=== PATIENT | female | born 1960 | race African-American/Black ===

== ENCOUNTER 2019-08-11 12:54 | Emergency (ER) | payer MEDICARE, MEDICAID ==
[~2019-08-11] VITALS: Ht 152.4 cm; Wt 136.0 kg
[2019-08-11] MEDS ORDERED: IBUPROFEN 800MG TABLET PO ONE (16:45)
[2019-08-11 17:12] LABS: BASOPHILS % 0.3 % (0.0-2.0); EOSINOPHILS % 1.4 % (0.0-5.0); HEMATOCRIT. 39.7 % (36.0-48.0); HEMOGLOBIN. 13.3 g/dL (12.0-16.0); LYMPHOCYTES % 38.8 % (20.0-50.0); MEAN CORPUSCULAR HEMOGLOBIN 32.5 pg (28.0-32.0); MEAN CORPUSCULAR VOLUME 96.7 fL (81.0-99.0); MEAN PLATELET VOLUME 7.1 fl (7.4-10.4); MONOCYTES % 5.9 % (2.0-8.0); NEUTROPHILS % 53.6 % (40.0-76.0); PLATELET 287 x1000/uL (130-400); RED BLOOD CELL COUNT 4.11 mill/uL (4.2-5.4); RED CELL DISTRIBUTION WIDTH 14.1 % (11.6-14.6)
[2019-08-11 17:18] LABS: CHLORIDE 105 mEq/L (98-107)
[2019-08-11 17:22] LABS: ETHANOL BLOOD < 10 mg/dL
[2019-08-11 17:27] LABS: CREATINE KINASE 164 IU/L (26-192)
[2019-08-11 17:30] LABS: CREATINE KINASE MB FRACTION 1.5 ng/mL (0.5-3.6)
[2019-08-11 19:33] VITALS: BP 163/96
== END 2019-08-11 19:40 | disposition home or self-care (01) ==
LOC: ER 12:54
DX: M19.012 Primary osteoarthritis, left shoulder (principal)
CPT/HCPCS: 36415; 71045; 73030; 80320; 82550; 82553; 83880; 84443; 84484; 85651; 93005; 99284; G0480

== ENCOUNTER → 2021-07-09 | Outpatient (CLI) | payer MEDICARE, MEDICAID ==
[~2021-07-09] MED LIST: ALBUTEROL (0.083%) 2.5MG/3ML NEB ONE
== END | disposition home or self-care (01) ==
LOC: PF 11:11
PROVIDERS: ATTEND Internal Medicine Pulmonary Disease
DX: G47.33 Obstructive sleep apnea (adult) (pediatric) (principal); J45.909 Unspecified asthma, uncomplicated; Z20.822 Contact with and (suspected) exposure to COVID-19
CPT/HCPCS: 87426; 94060; 94727; 94729

== ENCOUNTER 2024-07-06 05:44 | Inpatient (IN) | payer MEDICARE, OTHER ==
[~2024-07-06] VITALS: Ht 154.9 cm; Wt 131.2 kg
[~2024-07-06 05:44] MED LIST changes: -ALBUTEROL (0.083%) 2.5MG/3ML NEB ONE; +ALLO100T PO; +ASPI-1497 PO; +ERGO1250 PO; +GABA-532 PO; +HYDR25TA PO; +LOSA100T33 PO; +NAPR-681 PO; +NIFE90TA2 PO
[2024-07-06] MEDS ORDERED: BUPIVACAINE HCL/PF 0.25% (2.5MG/ML) 10ML ONE (06:40)
[2024-07-06] MEDS ORDERED: POLYMYXIN B SULFATE 500000 UNITS/VIAL ONE ×2 (06:41→07:31)
[2024-07-06] MEDS ORDERED: VANCOMYCIN HCL 1GM VIAL ONE (06:41)
[2024-07-06] MEDS: LACTATED RINGERS 1,000 ML IV SCH (06:48)
[2024-07-06] MEDS ORDERED: ROPIVACAINE HCL 1% 20 ML VIAL EPI ONE (07:25)
[2024-07-06] MEDS ORDERED: TRANEXAMIC ACID 1000MG PREMIX 200 ML IV ONE (07:31)
[2024-07-06] MEDS ORDERED: LIDOCAINE HCL/EPINEPHRINE 1%-EPI 1:100,000 20ML VIAL ONE (07:32)
[2024-07-06] MEDS ORDERED: SKIN ADHESIVE 0.7 GM EA TOP ONE (09:16)
[2024-07-06] MEDS ORDERED: SUGAMMADEX SODIUM 200MG/2ML VIAL IV ONE (09:42)
[2024-07-06] MEDS ORDERED: KETOROLAC 30MG/ML VIAL IV PRN (10:00)
[2024-07-06] MEDS ORDERED: ACETAMINOPHEN 325MG TABLET PO PRN (10:00)
[2024-07-06] MEDS ORDERED: CEFAZOLIN 1000MG PREMIX 50 ML IV NR (10:00)
[2024-07-06] MEDS ORDERED: ONDANSETRON HCL 4MG/2ML INJ IV PRN ×2 (10:00→11:30)
[2024-07-06] MEDS: HYDROMORPHONE HCL/PF 1MG/ML INJ IV PRN (11:46)
[2024-07-06] MEDS ORDERED: LABETALOL 5MG/ML 4ML INJ IV PRN (12:00)
[2024-07-06] MEDS ORDERED: MEPERIDINE HCL/PF 25MG/ML CPJ IV PRN (12:00)
[2024-07-06] MEDS ORDERED: DIPYRIDAMOLE 25 MG TABLET PO SCH (13:00)
[2024-07-06] MEDS: METOCLOPRAMIDE HCL 10MG/2ML VIAL IV SCH (14:00)
[2024-07-06 16:00] VITALS: BP 112/80; PULSE 62; RESP 18; TEMP 36.28068; O2SAT 95
[2024-07-06 18:34] VITALS: BP 149/91; PULSE 76; RESP 14; TEMP 36.14
[2024-07-06 19:28] LABS: POTASSIUM 4.6 mEq/L (3.5-5.1)
[2024-07-06 19:29] LABS: CALCIUM 10.8 mg/dL (8.7-10.4)
[2024-07-06 19:34] LABS: CREATININE 1.2 mg/dL (0.6-1.0)
[2024-07-06 20:00] VITALS: BP 154/85; PULSE 72; RESP 18; TEMP 37.00296; O2SAT 98
[2024-07-06] MEDS: SENNOSIDES/DOCUSATE SOD 8.6/50MG TABLET PO SCH (21:00)
[2024-07-06] MEDS: HYDROCODONE/ACETAMINOPHEN 5/325MG TABLET PO PRN (21:09)
[2024-07-06] MEDS: CEFAZOLIN 1000MG PREMIX 50 ML IV SCH (22:00)
[2024-07-07] VITALS: BP 126/77; PULSE 63; RESP 20; TEMP 36.22512; O2SAT 99
[2024-07-07 04:00] VITALS: BP 132/78; PULSE 62; RESP 19; TEMP 36.89184; O2SAT 100
[2024-07-07 07:04] LABS: BASOPHILS % 0.3 % (0.0-2.0); HEMATOCRIT. 38.8 % (36.0-48.0); HEMOGLOBIN. 12.5 g/dL (12.0-16.0); LYMPHOCYTES % 13.3 % (20.0-50.0); MEAN CORPUSCULAR HEMOGLOBIN 31.9 pg (28.0-32.0); MEAN CORPUSCULAR HGB CONC 32.2 g/dL (31.0-37.0); MEAN CORPUSCULAR VOLUME 99.2 fL (81.0-99.0); MEAN PLATELET VOLUME 7.9 fl (7.4-10.4); NEUTROPHILS % 78.4 % (40.0-76.0); PLATELET 269 x1000/uL (130-400); RED BLOOD CELL COUNT 3.91 mill/uL (4.2-5.4); RED CELL DISTRIBUTION WIDTH 14.5 % (11.6-14.6); WHITE BLOOD COUNT 11.8 x1000/uL (4.5-11.0)
[2024-07-07] MEDS ORDERED: OXYC-100 MT (07:50)
[2024-07-07] MEDS ORDERED: SULF1TAB48 MT (07:51)
[2024-07-07 08:00] VITALS: BP 124/78; PULSE 75; RESP 18; TEMP 35.61396; O2SAT 99
[2024-07-07] MEDS ORDERED: NIFEDIPINE XL 60MG TAB PO SCH (08:00)
[2024-07-07] MEDS ORDERED: HYDROCHLOROTHIAZIDE 25MG TABLET PO SCH (08:00)
[2024-07-07] MEDS ORDERED: LOSARTAN 100 MG TABLET PO SCH (08:00)
[2024-07-07] MEDS ORDERED: NALOXONE HCL 0.4MG/ML VIAL IV PRN (08:00)
[2024-07-07] MEDS ORDERED: ASPIRIN 81MG EC TABLET PO SCH (08:00)
[2024-07-07] MEDS: LOSARTAN 100 MG TABLET PO SCH (08:45)
[2024-07-07] MEDS: NIFEDIPINE XL 60MG TAB PO SCH (08:46)
[2024-07-07] MEDS: HYDROCHLOROTHIAZIDE 25MG TABLET PO SCH (08:46)
[2024-07-07] MEDS: ASPIRIN 81MG EC TABLET PO SCH (08:46)
[2024-07-07 12:00] VITALS: BP 142/78; PULSE 67; RESP 18; TEMP 36.114; O2SAT 99
[2024-07-07 16:00] VITALS: BP 123/63; PULSE 87; RESP 17; TEMP 36.50292; O2SAT 96
[2024-07-07 20:00] VITALS: BP 146/74; PULSE 80; RESP 19; TEMP 35.89176; O2SAT 95
[2024-07-07] MEDS: HYDROCODONE/ACETAMINOPHEN 10/325MG TABLET PO PRN (21:38)
[2024-07-08] VITALS: BP 114/52; PULSE 81; RESP 19; TEMP 36.44736; O2SAT 96
[2024-07-08 04:00] VITALS: BP 121/67; PULSE 79; RESP 19; TEMP 36.50292; O2SAT 96
[2024-07-08 08:00] VITALS: BP 134/80; PULSE 81; RESP 18; TEMP 37.28076; O2SAT 95
[2024-07-08 12:00] VITALS: BP 125/68; PULSE 85; RESP 19; TEMP 36.61404; O2SAT 98
[2024-07-08 13:03] VITALS: BP 125/68; PULSE 85; TEMP 97.9; O2SAT 99
== END 2024-07-08 13:47 | disposition home or self-care (01) | DRG 483 ==
LOC: OR 05:44 → 6EST 16:19
PROVIDERS: ADMIT Internal Medicine; ATTEND Internal Medicine
PROC: 0RRJ0JZ Replacement of Right Shoulder Joint with Synthetic Substitute, Open Approach (ICD-10-PCS; principal; 2024-07-06)
PROC: 0LS30ZZ Reposition Right Upper Arm Tendon, Open Approach (ICD-10-PCS; 2024-07-06)
DX: M19.011 Primary osteoarthritis, right shoulder (principal); G82.50 Quadriplegia, unspecified; N17.9 Acute kidney failure, unspecified; Z68.43 Body mass index [BMI] 50.0-59.9, adult; M47.12 Other spondylosis with myelopathy, cervical region; E66.01 Morbid (severe) obesity due to excess calories; E83.52 Hypercalcemia; G47.33 Obstructive sleep apnea (adult) (pediatric); I10 Essential (primary) hypertension; M19.012 Primary osteoarthritis, left shoulder; G62.9 Polyneuropathy, unspecified; M48.02 Spinal stenosis, cervical region; K59.00 Constipation, unspecified; F41.9 Anxiety disorder, unspecified; Z98.1 Arthrodesis status; Z88.5 Allergy status to narcotic agent
CPT/HCPCS: 36415; 73030; 80048; 85025; 86850; 86900; 88304; 88311; 97116; 97162; 97166; 97535; J0690; J1170; J2765; J2795; J3370; J3490; C1769; C1776

== ENCOUNTER → 2024-07-26 | Outpatient (CLI) | payer MEDICARE, OTHER ==
[~2024-07-26] MED LIST changes: -ERGO1250 PO; -HYDR25TA PO; -NAPR-681 PO; +OXYC-100 MT; +SULF1TAB48 MT
== END | disposition home or self-care (01) ==
LOC: RAD 10:43
DX: M19.011 Primary osteoarthritis, right shoulder (principal); Z96.611 Presence of right artificial shoulder joint
CPT/HCPCS: 73030

== ENCOUNTER → 2025-05-25 | Outpatient (CLI) | payer MEDICARE, MEDICAID ==
[~2025-05-25] MED LIST changes: +GABA-1180 PO; -GABA-532 PO
== END | disposition home or self-care (01) ==
LOC: RAD 09:48
DX: M19.012 Primary osteoarthritis, left shoulder (principal); M25.511 Pain in right shoulder; M25.512 Pain in left shoulder; Z96.611 Presence of right artificial shoulder joint
CPT/HCPCS: 73030